=== PATIENT | female | born 2000 | race Caucasian/White ===

== ENCOUNTER 2021-05-30 14:04 | Emergency (ER) | payer MEDICAID, OTHER ==
[~2021-05-30] VITALS: Ht 165 cm; Wt 35.0 kg
[2021-05-30 14:27] LABS: BILIRUBIN,URINE NEGATIVE (NEGATIVE); CLARITY,URINE CLOUDY; COLOR,URINE YELLOW; GLUCOSE, URINE (UA) NEGATIVE (NEGATIVE); KETONES,URINE NEGATIVE (NEGATIVE); LEUKOCYTE ESTERASE ,URINE TRACE (NEGATIVE); NITRITE,URINE NEGATIVE (NEGATIVE); PH,URINE 6.5 (5-9); PROTEIN,URINE NEGATIVE (NEGATIVE)
[2021-05-30 14:47] LABS: WBC,URINE 0-2 /HPF
[2021-05-30 14:48] LABS: BACTERIA,URINE MODERATE /HPF; RENAL EPITHELIAL CELLS,URINE RARE /HPF
--- NOTE | 2021-05-30 14:56 | ED General ---
General Chief Complaint: General Problems/Pain Stated Complaint: HOT FLASH Nursing Triage Note: Patient has presented to ER with cc of "having a head asher" that lasted about 2 minutes. Patient reports that she was sittingat home when she had this head asher, had blurry vision, a rining in her ears, and became nauseated. It lasted about 2 minutes. Patient only complains of slight nausea and a slight headache upon arrival to the ER. She reports that she is 20 to 21 weeks . She is moving to the area and has no OB doctor at this time. She has seen an OB doctor in [place], [place] before moving. Source of Information: Patient History of Present Illness Date Seen by Provider: May 30, 2021 Time Seen by Provider: 14:15 Initial Comments Patient is a 21-year-old female who is a G1, P0, 21 weeks gestation who presents with headache and feeling of rushing in her head accompanied with partial vision loss starting 30 minutes prior to ED arrival. Symptoms lasted approximately 2 minutes have since subsided. Patient currently reports only a dull frontal headache. Denies nausea vomiting, chills, sweats, neck pain, stiffness rash. No other acute symptoms or complaints. Patient recently relocated to this area and has not yet established OB care. Denies complications of current . Timing/Duration: 1/2 Hour Severity: Mild Modifying Factors: improves with Other Associated Systoms: Other Allergies and Home Medications Patient Home Medication List Home Medication List Reviewed: Yes Review of Systems Review of Systems Constitutional: see HPI EENTM: see HPI Respiratory: see HPI Cardiovascular: see HPI Gastrointestinal: see HPI Genitourinary: see HPI Musculoskeletal: see HPI Skin: see HPI Psychiatric/Neurological: See HPI Hematologic/Lymphatic: See HPI Immunological/Allergic: see HPI All Other Systems Reviewed Negative Unless Noted: Yes Past Wefkyrd-Ekvdkv-Plqqya Hx Patient Social History Tobacco Use?: Yes Use of E-Cig and/or Vaping dev: Yes Use of E-Cig and/or Vaping Wilber: Current Everyday User Substance use?: No Alcohol Use?: No Physical Exam Vital Signs Vital Signs - First Documented 05/30/21 14:16 Temp 36.2 Pulse 85 Resp 16 B/P (MAP) 93/63 (73) Pulse Ox 98 Capillary Refill : Height, Weight, BMI Height: '" Weight: lbs. oz. kg; 12.00 BMI Method: General Appearance: No Apparent Distress, WD/WN Eyes: Bilateral Eye Normal Inspection, Bilateral Eye PERRL, Bilateral Eye EOMI HEENT: PERRL/EOMI, Pharynx Normal, Moist Mucous Membranes Neck: Full Range of Motion, Non Tender, Supple Respiratory: Chest Non Tender, Lungs Clear Cardiovascular: Regular Rate, Rhythm Gastrointestinal: Soft Neurologic/Psychiatric: Alert, Oriented x3, No Motor/Sensory Deficits Focused Exam Sepsis Stage: Ruled Out Progress/Results/Core Measures Suspected Sepsis SIRS Temperature: Pulse: 85 Respiratory Rate: 16 Blood Pressure 93 /63 Mean: 73 Results/Orders Lab Results Laboratory Tests Test 05/30/21 14:15 05/30/21 14:20 Range/Units Urine Color YELLOW Urine Clarity CLOUDY Urine pH 6.5 5-9 Urine Specific [place] 1.020 1.016-1.022 Urine Protein NEGATIVE NEGATIVE Urine Glucose (UA) NEGATIVE NEGATIVE Urine Ketones NEGATIVE NEGATIVE Urine Nitrite NEGATIVE NEGATIVE Urine Bilirubin NEGATIVE NEGATIVE Urine Urobilinogen 0.2 < = 1.0 MG/DL Urine Leukocyte Esterase TRACE H NEGATIVE Urine RBC (Auto) NEGATIVE NEGATIVE Urine RBC NONE /HPF Urine WBC 0-2 /HPF Urine Squamous Epithelial Cells 10-25 H /HPF Urine Renal Epithelial Cells RARE /HPF Urine Crystals NONE /LPF Urine Bacteria MODERATE H /HPF Urine Casts NONE /LPF Urine Mucus LARGE H /LPF Urine Culture Indicated NO Glucometer 84 70-110 MG/DL My Orders Orders - ANNMARIE SALAS DO Ua Culture If Indicated (05/30/21 14:14) Accucheck Achs ACHS (05/30/21 14:14) Vital Signs/I&O 05/30/21 14:16 Temp 36.2 Pulse 85 Resp 16 B/P (MAP) 93/63 (73) Pulse Ox 98 Capillary Refill : Blood Pressure Mean: 73 Departure Communication (Admissions) Patient with migraine-like aura resolved prior to ED arrival. Neurologic exam otherwise normal. Tylenol given for mild residual headache. Recommendations are supportive care watchful waiting and PCP follow-up. Return precautions reviewed. Patient verbalizes understanding treatment discharge instructions prior to departure. Impression Primary Impression: Headache Disposition: HOME, SELF-CARE Condition: Stable Departure-Patient Inst. Decision time for Depature: 15:01 Referrals: NO,LOCAL PHYSICIAN (PCP/Family) Primary Care Physician Patient Instructions: Headache, Adult ED Add. Discharge Instructions: You were evaluated in the emergency department for headache with dizziness and blurred vision. The exact cause of your symptoms has not been determined but may be related to Covid or a possible migraine variant. Please go home and rest, increase fluids and continue vitamins. Take Tylenol as needed for pain. Please establish with a local [facility]. Return to the ED if new or worsening symptoms. All discharge instructions reviewed with patient and/or family. Voiced understanding. ANNMARIE SALAS DO May 30, 2021 14:56
[2021-05-30 15:18] VITALS: BP 124/76
== END 2021-05-30 15:18 | disposition home or self-care (01) ==
LOC: ER FS 14:07
DX: O99.352 Diseases of the nervous system complicating pregnancy, second trimester (principal); R51.9 Headache, unspecified; F17.290 Nicotine dependence, other tobacco product, uncomplicated; Z3A.21 21 weeks gestation of pregnancy
CPT/HCPCS: 81000; 82947; 99282